=== PATIENT | female | born 1950 | race Caucasian/White ===

== ENCOUNTER 2021-02-24 20:29 | Inpatient (IN) | payer MEDICARE ==
[~2021-02-24 20:29] MED LIST: Iopamidol-370 76% 500 ML 1 ML ONE
[2021-02-24 20:59] LABS: #Eosinphils 0.1 thou/uL (0.0-0.7); #Lymphocytes 1.6 thou/uL (1.20-3.40); #Monocytes 0.5 thou/uL (0.11-0.59); #Neutrophils 6.2 thou/uL (1.40-6.50); %Basophils 0.4 % (0.0-1.0); %Eosinophils 1.3 % (0.0-10.0); %Lymphocytes 18.5 % (21.0-51.0); %Neutrophils 73.8 % (42.0-75.0); Hemoglobin 13.6 g/dL (12.0-16.0); Mean Corpuscular HGB CONC 34.7 g/dL (32.0-36.0); Mean Corpuscular Hemoglobin 31.8 pg (27.0-31.0); Mean Corpuscular Volume 91.4 fL (78.0-98.0); Mean Platelet Volume 6.7 fL (7.4-10.4); Platelet Count 255 thou/uL (130-400); RBC Distribution Width 11.7 % (11.5-14.5); White Blood Cell (WBC) Count 8.4 thou/uL (4.8-10.8)
[2021-02-24 21:06] LABS: INR-International Normal Ratio 0.9; PTT 34.1 sec (22.9-36.1); Prothrombin Time 12.2 sec (12.0-14.7)
[2021-02-24] MEDS ORDERED: Ondansetron PF 4 MG/2 ML Vial ONE (21:20)
[2021-02-24 21:22] LABS: ALT (SGPT) 14 U/L (8-55); AST (SGOT) 15 U/L (5-34); Albumin 4.2 g/dL (3.4-4.8); Alkaline Phosphatase 161 U/L (40-110); Anion Gap 15 mmol/L (10-20); BUN (Urea Nitrogen) 18 mg/dL (9.8-20.1); Bilirubin, Total 0.4 mg/dL (0.2-1.2); Calc. Creatinine Clearance 0 mL/min (70-130); Calcium 9.4 mg/dL (7.8-10.44); Carbon Dioxide 25 mmol/L (23-31); Chloride 101 mmol/L (98-107); Globulin 3.5 g/dL (2.4-3.5); Glucose 130 mg/dL (83-110); Potassium 3.6 mmol/L (3.5-5.1); Protein, Total 7.7 g/dL (5.8-8.1); Sodium 137 mmol/L (136-145)
[2021-02-24] MEDS ORDERED: hydrALAZINE 20 MG/ML VIAL ONE (21:44)
[2021-02-24] MEDS ORDERED: Aspirin Chewable 81 MG TAB ONE (23:12)
[2021-02-25 00:39] LABS: SARS-CoV-2 NAA Rapid Test DETECTED (NotDetected)
[2021-02-25] MEDS ORDERED: Senokot S 8.6-50 MG TAB PO PRN (01:24)
[2021-02-25] MEDS ORDERED: Ondansetron ODT 4 MG TAB SL PRN (01:30)
[2021-02-25] MEDS ORDERED: Ondansetron PF 4 MG/2 ML Vial IVP PRN (01:30)
[2021-02-25] MEDS ORDERED: Acetaminophen 650 MG Suppository PR PRN (02:00)
[2021-02-25] MEDS ORDERED: Acetaminophen 325 MG TAB PO PRN (02:00)
[2021-02-25] MEDS ORDERED: traMADol HCl 50 MG TAB PO PRN (07:32)
[2021-02-25 08:20] LABS: Hemoglobin 13.6 g/dL (12.0-16.0); Mean Corpuscular HGB CONC 32.3 g/dL (32.0-36.0); Mean Corpuscular Hemoglobin 30.1 pg (27.0-31.0); Mean Corpuscular Volume 93.3 fL (78.0-98.0); Mean Platelet Volume 7.5 fL (7.4-10.4); Platelet Count 238 thou/uL (130-400); RBC Distribution Width 12.1 % (11.5-14.5); White Blood Cell (WBC) Count 5.6 thou/uL (4.8-10.8)
[2021-02-25 08:32] LABS: Anion Gap 17 mmol/L (10-20); BUN (Urea Nitrogen) 16 mg/dL (9.8-20.1); CRP (Inflammatory) 1.45 mg/dL (= or < 0.5); Calc. Creatinine Clearance 60 mL/min (70-130); Calcium 9.8 mg/dL (7.8-10.44); Carbon Dioxide 23 mmol/L (23-31); Chloride 100 mmol/L (98-107); Glucose 75 mg/dL (83-110); Sodium 136 mmol/L (136-145)
[2021-02-25 08:53] LABS: Band 8 % (5-11); Eosinophils 1 % (0-10); Lymphocytes 35 % (21-51); MDiff Complete? YES; Monocytes 3 % (0-10); Neutrophil 53 % (42-75); Platelet Morphology Comment Appears Adequate; Polychromasia SLIGHT = 2-3 cells (100X) (0-2/hpf)
[2021-02-25] MEDS ORDERED: Senokot S 8.6-50 MG TAB ONE (10:25)
[2021-02-25] MEDS ORDERED: Carvedilol 3.125 MG TAB ONE (10:26)
[2021-02-25] MEDS: Carvedilol 3.125 MG TAB PO SCH ×2 (10:31→16:13)
[2021-02-25] MEDS: Zinc Sulfate 220 MG CAP PO SCH (10:31)
[2021-02-25] MEDS: Senokot S 8.6-50 MG TAB PO SCH ×2 (10:31→21:27)
[2021-02-25] MEDS: Ascorbic Acid 500 mg Chewable Tablet PO SCH (10:31)
[2021-02-25] MEDS: Sodium Chloride 0.9% 1,000 ML IV SCH (10:33)
[2021-02-25] MEDS: Donepezil HCl 5 MG TAB PO SCH (21:27)
[2021-02-25] MEDS: Atorvastatin Calcium 40 MG TAB PO SCH (21:27)
[2021-02-25] MEDS: hydrALAZINE 20 MG/ML VIAL SLOW IVP PRN (21:28)
[2021-02-25] MEDS ORDERED: Lorazepam 2 MG/ML VIAL SLOW IVP SCH (22:00)
[2021-02-25] MEDS: Melatonin 3 MG TAB PO SCH (22:26)
[2021-02-25] MEDS ORDERED: OLANZapine 10 MG VIAL IM SCH (23:46)
[2021-02-26] MEDS: Sodium Chloride 0.9% 1,000 ML IV SCH ×2 (06:39→15:26)
[2021-02-26 07:42] LABS: Anion Gap 16 mmol/L (10-20); BUN (Urea Nitrogen) 14 mg/dL (9.8-20.1); Calc. Creatinine Clearance 54 mL/min (70-130); Calcium 10.4 mg/dL (7.8-10.44); Carbon Dioxide 25 mmol/L (23-31); Cardiac Risk 3.1 (Less than 4.5); Chloride 102 mmol/L (98-107); Cholesterol 210 mg/dl (< 200 Desired); Glucose 80 mg/dL (83-110); HDL Cholesterol 68 mg/dL (>60 Neg Risk); LDL Cholesterol, Calculated 120 mg/dL; Sodium 139 mmol/L (136-145); Triglycerides 110 mg/dL (Less than 150)
[2021-02-26] MEDS ORDERED: Lorazepam 2 MG/ML VIAL SLOW IVP SCH (08:00)
[2021-02-26] MEDS ORDERED: FLU VACC QS2021-22(65YR UP)/PF 240 MCG/0.7 ML SYRINGE IM ONE (09:00)
[2021-02-26 09:02] VITALS: BMI 18.6
[2021-02-26] MEDS: Senokot S 8.6-50 MG TAB PO SCH ×3 (09:09→21:09)
[2021-02-26] MEDS: Carvedilol 3.125 MG TAB PO SCH ×3 (09:09→16:00)
[2021-02-26] MEDS: Zinc Sulfate 220 MG CAP PO SCH ×2 (09:09→14:13)
[2021-02-26] MEDS: Ascorbic Acid 500 mg Chewable Tablet PO SCH ×2 (09:09→14:12)
[2021-02-26] MEDS: Aspirin Chewable 81 MG TAB PO SCH ×2 (09:09→14:13)
[2021-02-26] MEDS ORDERED: Aspirin 300 MG Suppository PR SCH (13:25)
[2021-02-26] MEDS: hydrALAZINE 20 MG/ML VIAL SLOW IVP PRN (16:00)
[2021-02-26] MEDS: Lisinopril 20 MG TAB PO SCH (21:09)
[2021-02-26] MEDS: Donepezil HCl 5 MG TAB PO SCH (21:09)
[2021-02-26] MEDS: Melatonin 3 MG TAB PO SCH (21:09)
[2021-02-26] MEDS: Atorvastatin Calcium 40 MG TAB PO SCH (21:09)
[2021-02-27] MEDS: Sodium Chloride 0.9% 1,000 ML IV SCH ×2 (06:32→22:57)
[2021-02-27] MEDS: Carvedilol 3.125 MG TAB PO SCH ×2 (10:17→17:03)
[2021-02-27] MEDS: Clopidogrel Bisulfate 75 MG TAB PO SCH (10:18)
[2021-02-27] MEDS: Senokot S 8.6-50 MG TAB PO SCH ×3 (10:18→21:48)
[2021-02-27] MEDS: Zinc Sulfate 220 MG CAP PO SCH (10:18)
[2021-02-27] MEDS: Aspirin Chewable 81 MG TAB PO SCH (10:18)
[2021-02-27] MEDS: Ascorbic Acid 500 mg Chewable Tablet PO SCH (11:14)
[2021-02-27 15:30] LABS: #Eosinphils 0.1 thou/uL (0.0-0.7); #Lymphocytes 2.3 thou/uL (1.20-3.40); #Monocytes 0.6 thou/uL (0.11-0.59); #Neutrophils 3.4 thou/uL (1.40-6.50); %Basophils 0.1 % (0.0-1.0); %Eosinophils 1.3 % (0.0-10.0); %Lymphocytes 35.5 % (21.0-51.0); %Monocytes 9.2 % (0.0-10.0); %Neutrophils 53.9 % (42.0-75.0); Hemoglobin 12.7 g/dL (12.0-16.0); Mean Corpuscular HGB CONC 33.2 g/dL (32.0-36.0); Mean Corpuscular Hemoglobin 30.7 pg (27.0-31.0); Mean Corpuscular Volume 92.4 fL (78.0-98.0); Mean Platelet Volume 6.5 fL (7.4-10.4); Platelet Count 296 thou/uL (130-400); RBC Distribution Width 12.1 % (11.5-14.5); Red Blood Cell (RBC) Count 4.14 mill/uL (4.20-5.40); White Blood Cell (WBC) Count 6.3 thou/uL (4.8-10.8)
[2021-02-27 15:49] LABS: ALT (SGPT) 10 U/L (8-55); AST (SGOT) 16 U/L (5-34); Albumin 3.6 g/dL (3.4-4.8); Alkaline Phosphatase 133 U/L (40-110); Anion Gap 13 mmol/L (10-20); BUN (Urea Nitrogen) 18 mg/dL (9.8-20.1); Bilirubin, Total 0.4 mg/dL (0.2-1.2); CRP (Inflammatory) 1.82 mg/dL (= or < 0.5); Calc. Creatinine Clearance 50 mL/min (70-130); Calcium 9.3 mg/dL (7.8-10.44); Carbon Dioxide 25 mmol/L (23-31); Chloride 103 mmol/L (98-107); Globulin 3.3 g/dL (2.4-3.5); Glucose 82 mg/dL (83-110); Potassium 3.8 mmol/L (3.5-5.1); Protein, Total 6.9 g/dL (5.8-8.1); Sodium 137 mmol/L (136-145)
[2021-02-27 17:15] LABS: Bilirubin Negative (Negative); Blood, Urine Negative (Negative); Clarity Clear (Clear); Glucose, Urine (Dipstick) Normal (Negative); Ketone, Urine Negative (Negative); Leukocyte 250 Leu/uL (Negative); Nitrite Negative (Negative); Protein, Urine (Dipstick) Negative (Neg-Trace); RBC/HPF 0-3 HPF (0-3); Specific Gravity, Urine 1.004 (1.002-1.036); Squamous Epithelial 0-3 HPF (0-3); Urobilinogen Normal mg/dL (Less than 2); pH, Urine 6.5 (5.0-9.0)
[2021-02-27 17:16] LABS: Bacteria/HPF 1+ HPF (None Seen)
[2021-02-27 17:17] LABS: Urine Culture Reflex Yes Yes
[2021-02-27] MEDS: hydrALAZINE 20 MG/ML VIAL SLOW IVP PRN (18:25)
[2021-02-27] MEDS: Enoxaparin Sodium 40 MG/0.4 ML SYRINGE SC SCH (21:30)
[2021-02-27] MEDS: Atorvastatin Calcium 40 MG TAB PO SCH ×2 (21:30→21:47)
[2021-02-27] MEDS: Donepezil HCl 5 MG TAB PO SCH ×2 (21:30→21:47)
[2021-02-27] MEDS: Lisinopril 20 MG TAB PO SCH ×2 (21:30→21:47)
[2021-02-28] MEDS: Ascorbic Acid 500 mg Chewable Tablet PO SCH (08:47)
[2021-02-28] MEDS: Zinc Sulfate 220 MG CAP PO SCH (08:47)
[2021-02-28] MEDS: Aspirin Chewable 81 MG TAB PO SCH (08:47)
[2021-02-28] MEDS: Clopidogrel Bisulfate 75 MG TAB PO SCH (08:47)
[2021-02-28] MEDS: Senokot S 8.6-50 MG TAB PO SCH ×2 (08:47→21:10)
[2021-02-28] MEDS: Carvedilol 3.125 MG TAB PO SCH ×2 (08:47→17:29)
[2021-02-28] MEDS: Sodium Chloride 0.9% 1,000 ML IV SCH (11:27)
[2021-02-28] MEDS: Atorvastatin Calcium 40 MG TAB PO SCH (21:09)
[2021-02-28] MEDS: Lisinopril 20 MG TAB PO SCH (21:09)
[2021-02-28] MEDS: Donepezil HCl 5 MG TAB PO SCH (21:09)
[2021-02-28] MEDS: Enoxaparin Sodium 40 MG/0.4 ML SYRINGE SC SCH (21:10)
[2021-02-28] MEDS: hydrALAZINE 20 MG/ML VIAL SLOW IVP PRN (23:14)
[2021-03-01] MEDS: Sodium Chloride 0.9% 1,000 ML IV SCH ×2 (03:54→17:39)
[2021-03-01] MEDS: Clopidogrel Bisulfate 75 MG TAB PO SCH (08:07)
[2021-03-01] MEDS: Senokot S 8.6-50 MG TAB PO SCH ×2 (08:07→20:06)
[2021-03-01] MEDS: Aspirin Chewable 81 MG TAB PO SCH (08:07)
[2021-03-01] MEDS: Ascorbic Acid 500 mg Chewable Tablet PO SCH (08:07)
[2021-03-01] MEDS: Carvedilol 3.125 MG TAB PO SCH ×2 (08:07→17:15)
[2021-03-01] MEDS: Zinc Sulfate 220 MG CAP PO SCH (08:08)
[2021-03-01] MEDS: cefTRIAXone\\ROCEPHIN 1 GM in Sodium Chloride 0.9% 100 ML IVPB SCH (10:54)
[2021-03-01] MEDS: hydrALAZINE 20 MG/ML VIAL SLOW IVP PRN ×2 (15:53→23:51)
[2021-03-01] MEDS: Enoxaparin Sodium 40 MG/0.4 ML SYRINGE SC SCH (20:06)
[2021-03-01] MEDS: Lisinopril 20 MG TAB PO SCH (20:06)
[2021-03-01] MEDS: Atorvastatin Calcium 40 MG TAB PO SCH (20:06)
[2021-03-01] MEDS: Donepezil HCl 5 MG TAB PO SCH (20:07)
[2021-03-02 05:36] LABS: #Eosinphils 0.1 thou/uL (0.0-0.7); #Lymphocytes 1.8 thou/uL (1.20-3.40); #Monocytes 0.6 thou/uL (0.11-0.59); #Neutrophils 2.8 thou/uL (1.40-6.50); %Basophils 0.8 % (0.0-1.0); %Eosinophils 1.7 % (0.0-10.0); %Lymphocytes 33.8 % (21.0-51.0); %Monocytes 11.8 % (0.0-10.0); Hemoglobin 11.8 g/dL (12.0-16.0); Mean Corpuscular HGB CONC 32.7 g/dL (32.0-36.0); Mean Corpuscular Hemoglobin 30.1 pg (27.0-31.0); Mean Corpuscular Volume 91.8 fL (78.0-98.0); Mean Platelet Volume 6.7 fL (7.4-10.4); Platelet Count 279 thou/uL (130-400); RBC Distribution Width 11.9 % (11.5-14.5); Red Blood Cell (RBC) Count 3.91 mill/uL (4.20-5.40); White Blood Cell (WBC) Count 5.4 thou/uL (4.8-10.8)
[2021-03-02 06:02] LABS: Anion Gap 12 mmol/L (10-20); BUN (Urea Nitrogen) 13 mg/dL (9.8-20.1); Calc. Creatinine Clearance 55 mL/min (70-130); Carbon Dioxide 23 mmol/L (23-31); Chloride 105 mmol/L (98-107); Glucose 124 mg/dL (83-110); Potassium 3.1 mmol/L (3.5-5.1); Sodium 137 mmol/L (136-145)
[2021-03-02] MEDS: Sodium Chloride 0.9% 1,000 ML IV SCH ×2 (08:44→20:41)
[2021-03-02] MEDS: Carvedilol 3.125 MG TAB PO SCH ×2 (08:44→16:48)
[2021-03-02] MEDS: Senokot S 8.6-50 MG TAB PO SCH ×2 (08:45→20:40)
[2021-03-02] MEDS: Ascorbic Acid 500 mg Chewable Tablet PO SCH (08:45)
[2021-03-02] MEDS: Zinc Sulfate 220 MG CAP PO SCH (08:45)
[2021-03-02] MEDS: Clopidogrel Bisulfate 75 MG TAB PO SCH (08:45)
[2021-03-02] MEDS: Aspirin Chewable 81 MG TAB PO SCH (08:45)
[2021-03-02] MEDS: cefTRIAXone\\ROCEPHIN 1 GM in Sodium Chloride 0.9% 100 ML IVPB SCH (09:07)
[2021-03-02] MEDS: Atorvastatin Calcium 40 MG TAB PO SCH (20:40)
[2021-03-02] MEDS: Enoxaparin Sodium 40 MG/0.4 ML SYRINGE SC SCH (20:40)
[2021-03-02] MEDS: Donepezil HCl 5 MG TAB PO SCH (20:40)
[2021-03-02] MEDS: Lisinopril 20 MG TAB PO SCH (20:40)
[2021-03-03] MEDS: Zinc Sulfate 220 MG CAP PO SCH (09:14)
[2021-03-03] MEDS: Senokot S 8.6-50 MG TAB PO SCH (09:14)
[2021-03-03] MEDS: Ascorbic Acid 500 mg Chewable Tablet PO SCH (09:14)
[2021-03-03] MEDS: Clopidogrel Bisulfate 75 MG TAB PO SCH (09:14)
[2021-03-03] MEDS: Aspirin Chewable 81 MG TAB PO SCH (09:14)
[2021-03-03] MEDS: Carvedilol 3.125 MG TAB PO SCH (09:15)
[2021-03-03] MEDS: cefTRIAXone\\ROCEPHIN 1 GM in Sodium Chloride 0.9% 100 ML IVPB SCH (11:19)
[2021-03-03 13:00] VITALS: BP 199/103; TEMP 97.4
[2021-03-03] MEDS ORDERED: Potassium Chloride 20 MEQ TAB PO SCH (14:45)
[2021-03-03] MEDS: Sodium Chloride 0.9% 1,000 ML IV SCH (15:36)
== END 2021-03-03 14:15 | DRG 177 ==
LOC: ERS 20:29 → NEURO 23:14 → OBSVTOIN 02-25 16:09 → 2SW 02-26 20:25
PROVIDERS: ADMIT Internal Medicine; ATTEND Hospitalist
PROC: 8E0ZXY6 Isolation (ICD-10-PCS; principal; 2021-02-25)
DX: U07.1 COVID-19 (principal); G92.8 Other toxic encephalopathy; J12.82 Pneumonia due to coronavirus disease 2019; I16.1 Hypertensive emergency; G45.9 Transient cerebral ischemic attack, unspecified; I69.952 Hemiplegia and hemiparesis following unspecified cerebrovascular disease affecting left dominant side; N39.0 Urinary tract infection, site not specified; I10 Essential (primary) hypertension; F01.50 Vascular dementia, unspecified severity, without behavioral disturbance, psychotic disturbance, mood disturbance, and anxiety; F32.A Depression, unspecified; I16.0 Hypertensive urgency; R73.9 Hyperglycemia, unspecified; Z79.899 Other long term (current) drug therapy; Z90.49 Acquired absence of other specified parts of digestive tract; B96.4 Proteus (mirabilis) (morganii) as the cause of diseases classified elsewhere
CPT/HCPCS: 36415; 70450; 70496; 70498; 70551; 71045; 80048; 80053; 80061; 81001; 84484; 85007; 85025; 85027; 85610; 85730; 86140; 87040; 87077; 87086; 87186; 93005; 93306; 96374; 96375; G0378; J0360; J0696; J1650; J2060; J2358; J2405; J3490; J7050; Q9967; U0002